=== PATIENT | male | born 1955 | race Caucasian/White ===

== ENCOUNTER → 2019-07-02 | Day surgery (SDC) | payer OTHER ==
[2019-07-01 10:19] LABS: ANION GAP 12.6 mmol/L (8-16); BLOOD UREA NITROGEN 16 mg/dL (7-26); BUN/CREATININE RATIO 15 (6-25); CALCIUM 9.2 mg/dL (8.4-10.2); CARBON DIOXIDE 25 mmol/L (22-29); CHLORIDE 108 mmol/L (98-107); CREATININE, SERUM 1.08 mg/dL (0.72-1.25); EST GLOMERULAR FILTRATION RATE > 60 ML/MIN (60-); GLUCOSE 96 mg/dL (74-118); POTASSIUM 4.6 mmol/L (3.5-5.1); SODIUM 141 mmol/L (136-145)
[2019-07-01 10:23] LABS: INR 0.95; PROTHROMBIN TIME 13.2 seconds (11.9-14.5)
[2019-07-01 10:24] LABS: PARTIAL THROMBOPLASTIN TIME 39.5 seconds (23.8-35.5)
--- NOTE | 2019-07-01 10:48 | Diagnostic Imaging Report ---
EXAMINATION: CHEST 2 VIEWS INDICATION: Pre-operative COMPARISON: None FINDINGS: LINES/TUBES:None LUNGS:The lungs are well-inflated. No focal consolidation or pulmonary edema. PLEURA:No pleural effusion or pneumothorax. MEDIASTINUM:The cardiomediastinal silhouette appears normal in size and shape. Atherosclerotic calcifications of the thoracic aorta. BONES/SOFT TISSUES:No acute osseous injury. ABDOMEN:No free air under the diaphragm. IMPRESSION: No focal pneumonia or pulmonary edema. Signed by: Martha Nick MD on 07/01/2019 10:45 AM
[~2019-07-02] MED LIST: ALEVE220 M1 PO; BUPIVACAINE HCL 0.5% INJ 30 ML VIAL INJ ONE; CELEBREX; DEXAMETHASONE SOD PHOS INJ 4 MG/ML VIAL ONE; FENTANYL CITRATE/PF 100MCG/2 ML INJ ONE; HYDROCHLOROTHIAZIDE PO; LIDOCAINE HCL 2% LOCAL INJ 5 ML SDV VIAL INJ ONE; LORAZEPAM1 MG PO; MIDAZOLAM HCL 2 MG/2 ML VIAL ONE; MULTIPLE VITAM1 EAC2 PO; ONDANSETRON HCL INJ 2MG/ML 2ML 2 MG/ML VIAL ONE; OSTEO BI-FLEX1 EAC2 PO; PROPOFOL IV EMULSION 10 MG/ML 20 ML VIAL ONE; SEVOFLURANE INHAL SOLN 250 ML PEN BTL ONE; SIMVASTATIN PO; SINUS & ALLERG1 EACH PEG; VANCOMYCIN 1GM/NS 250 ML 250 ML ONE; ZOLPIDEM TARTRA10 MG PO
--- OUTSIDE RECORDS SUMMARY | 2019-07-02 06:25 | XMS REPORT | Clinical Summary ---
Author Author [facility] Address Unknown Phone Unavailable Care Team Providers Care Painting Supervisor Name Role Phone Kristofer Garvin MD PCP Allergies Comments Active Allergy Reactions Severity Noted Date Rash GI Upset Sulfa (Sulfonamide 07/14/2013 Antibiotics) Medications End Date Status Medication Sig Dispensed Refills Start Date Active MELOXICAM ORAL Take by 0 mouth. Active HYDROCHLOROTHIAZIDE ORAL Take by 0 mouth. Active Problems Not on file Social History Date Tobacco Use Types Packs/Day Years Used Never Smoker Alcohol Use Drinks/Week oz/Week Comments No Sex Assigned at Date Recorded Not on file Industry Job Start Date Occupation Not on file Not on file Not on file Travel End Travel History Travel Start No recent travel history available. Last Filed Vital Signs Not on file Plan of Treatment Health Maintenance Due Date Last Done Comments COLONOSCOPY SCREENING 2006 SHINGLES VACCINES (#1) 2006 INFLUENZA VACCINE 06/25/2019 Results Not on fileafter 07/01/2018 Insurance Type Payer Benefit Subscriber ID Effective Phone Address Plan / Dates Group Workers Comp WORKERS COMP MISC xxxxxxxxx 2017-P WORKER'S resent COMP Advance Directives Patient has advance care planning documents on file. For more information, marco antonio e contact: Eriberto Sifuentes [address] [place] [id number]
--- OUTSIDE RECORDS SUMMARY | 2019-07-02 06:25 | XMS REPORT ---
Author Author [facility] [place] Address Unknown Phone Unavailable Care Team Providers Care Economic Development Specialist Name Role Phone SHERIE GOLDSTEIN Unavailable Unavailable Lindsey PONCE Unavailable Unavailable Problems This patient has no known problems. Allergies, Adverse Reactions, Alerts This patient has no known allergies or adverse reactions. Medications This patient has no known medications. Results Test Description Test Time Test Comments Text Results Atomic Results Result Comments CHEST 2 VIEWS 2019-07-01 10:44:00 [place] [address] Patient Name: MARTÍNEZ CHRISTENSEN MR #: [id number] : 1955 Age/Sex: 63/M Req #: [id number] Adm Physician: Ordered by: SHERIE GOLDSTEIN MD Report #: [id number] Location: OR Room/Bed: Procedure: [id number] DX/CHEST 2 VIEWS Exam Date: Exam Time: REPORT STATUS: Signed EXAMINATION: CHEST 2 VIEWS INDICATION: Pre-operative COMPARISON: None FINDINGS: LINES/TUBES:None LUNGS:The lungs are well- inflated. No focal consolidation or pulmonary edema. PLEURA:No pleural effusion or pneumothorax. MEDIASTINUM:The cardiomediastinal silhouette appears normal in size and shape. Atherosclerotic calcifications of the thoracic aorta. BONES/SOFT TISSUES:No acute osseous injury. ABDOMEN:No free air under the diaphragm. IMPRESSION: No focal pneumonia or pulmonary edema. Signed by: Celi Disla MD on 07/01/2019 10:45 AM Dictated By: CELI DISLA MD 44 Transcribed By: SANDRA on 07/01/191044 COPY TO: SHERIE GOLDSTEIN MD CT ABDOMEN/PELVIS WO [place] [address] Patient Name: MARTÍNEZ CHRISTENSEN MR #: [id number] : 1955 Age/Sex: 62/M Req #: [id number] Adm Physician: Ordered by: VILLA PONCE MD Report #: [id number] Location: ER Room/Bed: Procedure: [id number] CT/CT ABDOMEN/PELVIS WO Exam Date: 09/03/17 Exam Time: 1845 REPORT STATUS: Signed EXAM: CT Abdomen and Pelvis WITHOUT contrast INDICATION: Abdominal pain COMPARISON: None. TECHNIQUE: Abdomen and pelvis were scanned utilizing a multidetector helical scanner from the lung base to the pubic symphysis. Coronal and sagittal reformations were obtained. The lack of intravenous contrast limits the evaluation of the solid organs, vasculature, and possible lymphadenopathy. Protocol: General survey without contrast IV CONTRAST: No intravenous contrast was administered as per physician request. ORAL CONTRAST: None. COMPLICATIONS: None. RADIATION DOSE: Total Exam DLP: 601.3 mGy*cm. CTDIvol has been reviewed. It is below the limits set by the Radiation Protocol Committee (RPC). FINDINGS: LINES: None. Lower thorax: No parenchymal abnormality. No pneumothorax. No pleural effusi on. Liver: No focal mass. No hepatomegaly. Normal parenchyma. Gallbladder: No gallstones. No gallbladder distention. Biliary tree: No intrahepatic duct dilation. No extrahepatic duct dilation. Spleen: No splenomegaly. No focal mass. Pancreas: No focal mass. Normal pancreatic duct. No peripancreatic inflammatory changes. Kidneys: No obstructing calculi. No hydronephrosis. No cysts. Left perinephric soft tissue inflammatory changes. Minimal left hydroureter. Adrenal glands: No adrenal nodules.. Bladder: Normal urinary bladder. Pelvic organs: Nor mal. GI: No bowel wall thickening. No air-fluid levels. The stomach and small bowel are normal. The colon is normal. Normal appendix. A moderate amount of retained feces limits intraluminal evaluation of the colon. Peritoneum/retroperitoneum: No pneumoperitoneum. No ascites. No drainable fluid collection. Lymph nodes: No lymphadenopathy. . Vessels: No focal abnormality. Atherosclerotic calcifications. Limited evaluation. Bones: No focal abnormality. Degenerative changes of the lumbar spine. Soft tissues: No focal abnormality. IMPRESSION: Minimal left hydroureter and left perinephric soft tissue inflammatory changes may represent pyelonephritis. No evidence of obstructing calculus or nephrolithiasis. Signed by: Dr. Willie Perez M.D. on 09/03/2017 7:15 PM Dictated By: WILLIE PEREZ MD 14 Transcribed By: SANDAR on 09/03/171914 COPY TO: VILLA PONCE MD
--- NOTE | 2019-07-02 07:08 | NUR ---
SPIRITUAL CARE - Pre-Surgery Assessment: Pt in bed. Pt's at bedside. Pt reported supportive attention from family and friends. Intervention: I provided pastoral presence, hospitality, and sympathetic listening. I acquainted pt with availability of vehicle damage appraiser while hospitalized. Outcome: Pt expressed appreciation for visit. No need for follow up indicated at this time. PEPITO Castanedalain Spiritual Care Department O: [phone] Pager: [phone] ([phone] + number calling from)
[2019-07-02 10:15] VITALS: BP 116/86
--- NOTE | 2019-07-02 16:01 | Operative Report ---
DATE OF PROCEDURE: 07/02/2019 SURGEON: Nicolas Weir MD PREOPERATIVE DIAGNOSIS: Right carpal tunnel syndrome. POSTOPERATIVE DIAGNOSIS: Right carpal tunnel syndrome. PROCEDURE: Right carpal tunnel release. ANESTHESIA: General. INDICATIONS: The patient is a 63-year-old man, who presents with a right carpal tunnel syndrome. He was taken to the operating room for right carpal tunnel release. PROCEDURE IN DETAIL: After induction of general anesthesia, the patient was placed on the operating table in supine position with the right arm abducted over a hand table. The right hand, wrist, and forearm were prepped and draped circumferentially in sterile fashion. The tourniquet was inflated over the upper arm to 250 mmHg. A small midline incision was created over the median palmar crease of the hand just distal to the distal flexor crease of the wrist. The subcutaneous fat was incised in line with the incision. The transverse carpal ligament was identified and incised with a #15 C blade until the underlying median nerve came into view. As the chef's assistant retracted the skin edges, the transverse carpal ligament was divided proximally and distally with tenotomy scissors until the full length of the ligament had been divided and the full length of median nerve within the carpal tunnel was exposed and decompressed. The point of maximum compression of the nerve appeared to be 2.5 cm distal to the distal flexor crease of the wrist where the ligament was at its thickest. More distally, the recurrent motor branch of the nerve was preserved within this fat pad. The wound was irrigated bacitracin small bacitracin solution. Hemostasis was secured. The subcutaneous layer was closed with a 3-0 Vicryl suture. The skin was closed with a single 3-0 nylon suture in a horizontal mattress fashion. A dressing was applied and the hand was wrapped after the tourniquet had been deflated. The skin was infiltrated with lidocaine without epinephrine prior to wrapping the hand. The patient was awakened and taken to postanesthesia care unit in stable condition. No intraoperative complications were encountered. Estimated blood loss was minimal. Nicolas Weir MD PP/MODL /[id number]
== END | disposition home or self-care (01) ==
LOC: OR 06:13
PROVIDERS: ATTEND Neurological Surgery
DX: G56.01 Carpal tunnel syndrome, right upper limb (principal); Z01.810 Encounter for preprocedural cardiovascular examination; Z01.812 Encounter for preprocedural laboratory examination; M19.90 Unspecified osteoarthritis, unspecified site; E78.5 Hyperlipidemia, unspecified; R12 Heartburn; Z87.891 Personal history of nicotine dependence; Z88.2 Allergy status to sulfonamides; Z88.8 Allergy status to other drugs, medicaments and biological substances
CPT/HCPCS: 36415; 64721; 71046; 80048; 85610; 85730; 93005; J1100; J2001; J2250; J2405; J2704; J3010; J3370

== ENCOUNTER → 2019-07-23 | Day surgery (SDC) | payer OTHER ==
[~2019-07-23] MED LIST changes: +KETOROLAC TROMETHAMINE 30 MG/ML VIAL ONE
--- OUTSIDE RECORDS SUMMARY | 2019-07-23 06:31 | XMS REPORT | Clinical Summary ---
Author Author [facility] Address Unknown Phone Unavailable Care Team Providers Care Assistant Credit Manager Name Role Phone Kristofer Garvin MD PCP Allergies Comments Active Allergy Reactions Severity Noted Date Rash GI Upset Sulfa (Sulfonamide 07/14/2013 Antibiotics) Medications End Date Status Medication Sig Dispensed Refills Start Date Active MELOXICAM ORAL Take by 0 mouth. Active HYDROCHLOROTHIAZIDE ORAL Take by 0 mouth. 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
--- NOTE | 2019-07-23 07:15 | NUR ---
SPIRITUAL CARE - Pre-Surgery Assessment: Pt in bed. Pt's at bedside. Pt identified as Mandaen. Pt reported supportive attention from family and friends. Intervention: I provided pastoral presence, hospitality, and sympathetic listening. I acquainted pt with availability of stopboard assembler while hospitalized. Outcome: Pt expressed appreciation for visit. No need for follow up indicated at this time. PEPITO Castanedalain Spiritual Care Department O: [phone] Pager: [phone] ([phone] number calling from)
[2019-07-23 10:00] VITALS: BP 104/78
--- NOTE | 2019-07-23 12:35 | Operative Report ---
DATE OF PROCEDURE: 07/23/2019 SURGEON: Nicolas Weir MD PREOPERATIVE DIAGNOSIS: Left carpal tunnel syndrome. POSTOPERATIVE DIAGNOSIS: Left carpal tunnel syndrome. PROCEDURE: Left carpal tunnel release. ANESTHESIA: General. DESCRIPTION OF PROCEDURE: After induction of general anesthesia, the patient was placed on the operating table in supine position with the left arm abducted over a hand table. The left hand, wrist, and forearm were prepped and draped circumferentially in sterile fashion. After tourniquet had been inflated over the upper arm to 250 mmHg, a small midline incision was created over the median and palmar crease of the hand just distal to the distal flexor crease of the wrist. The subcutaneous fat was divided. The transverse carpal ligament was exposed and incised with a #15 C blade until the underlying median nerve came into view. As the wellness assistant retracted the skin edges, the transverse carpal ligament was divided proximally and distally until the full length of the median nerve was exposed and decompressed within the carpal tunnel. The point of maximum compression of the nerve appeared to be about 2 cm distal to the distal flexor crease of the wrist where the ligament was at its thickest. More distally, the recurrent motor branch of the nerve was preserved within its fat pad. The wound was copiously irrigated with bacitracin solution. Hemostasis was secured. The subcutaneous layer was closed with 3-0 Vicryl suture. The skin was closed with 3-0 nylon suture in horizontal mattress fashion. The tourniquet was deflated and dressing was applied after the skin had been infiltrated with lidocaine. The hand was wrapped. The patient was awakened, extubated, and taken to postanesthesia care unit in stable condition. No intraoperative complications were encountered. Estimated blood loss was minimal. Nicolas Weir MD PP/MODL /[id number]
== END | disposition home or self-care (01) ==
LOC: OR 06:29
PROVIDERS: ATTEND Neurological Surgery
DX: G56.02 Carpal tunnel syndrome, left upper limb (principal); Z88.2 Allergy status to sulfonamides; Z88.8 Allergy status to other drugs, medicaments and biological substances; E78.5 Hyperlipidemia, unspecified; I10 Essential (primary) hypertension; F41.9 Anxiety disorder, unspecified
CPT/HCPCS: 64721; J1100; J1885; J2001; J2250; J2405; J2704; J3010; J3370